=== PATIENT | male | born 1945 | race Caucasian/White ===

== ENCOUNTER 2018-09-23 17:54 | Inpatient (IN) ==
--- NOTE | 2018-09-23 20:49 | ED ---
HPI General Chief complaint: Extremity Problem,Nontraumatic Stated complaint: Rt Leg/Positive Blood Clot Time Seen by Provider: 09/23/18 20:47 Source: patient Mode of arrival: ambulatory Limitations: no limitations History of Present Illness HPI Narrative: 73-year-old male presents to the emergency department by private transportation for evaluation of DVT identified by ultrasound as an outpatient from [facility]. Patient states he has been here since 06 August did fly from [place]. Patient has been doing well but has noted swelling of the right lower extremity for 2 weeks. Patient has had previous left knee replacement but denies any issues with the right lower extremity. Patient also has history of peripheral neuropathy. Patient is not diabetic. Patient states that he went to see an orthopedist today because he has been noticing some clicking of his right knee and had a steroid injection but the orthopedist recommended an ultrasound to make sure he did not have a DVT involving the right lower extremity that was swollen and greater in size than the left lower extremely imaging study was positive for right lower extremity DVT. Patient was encouraged to come to the hospital for evaluation. Patient denies any chest pain pleuritic chest pain or shortness of breath. Patient is also had no hemoptysis. Patient takes low-dose aspirin daily no other blood thinning agents. No personal history or family history of clotting disorder. Patient denies any arrhythmia, connective tissue disorder, or autoimmune disorder. Patient had no recent travel beyond traveling to [place] and August patient denies any procedural intervention or sedentary//protracted bedrest. Patient also has history of previous CABG and hypertension. Patient has peripheral neuropathy. Patient denies history of PAD or no tobaccoism. Patient denies leg pain except for his knee. MD Complaint: Reports extremity pain and extremity swelling; Denies cold extremity, joint swelling and joint paint Onset (ago): week(s) Pain Consistency: constant Location: Reports right and lower extremity Severity scale (1-10): 3 Quality: Reports aching Radiation: Reports none Relieving factors: rest Exacerbating factors: weight bearing, walking and exertion Associated symptoms: Denies chest pain, shortness of breath, fever, myalgias, arthralgias and rash Context: Reports recent travel (august 06); Denies immobilization, recent surgery/procedure, history of DVT, history of peripheral vascular disease, recent illness and history of gout Related Data Home Medications Medication Instructions Recorded Confirmed amlodipine 5 mg PO DAILY 09/23/18 09/23/18 aspirin [Aspir-81] 81 mg PO DAILY 09/23/18 09/23/18 ezetimibe [Zetia] 10 mg PO DAILY 09/23/18 09/23/18 metoprolol tartrate 50 mg PO BID 09/23/18 09/23/18 naproxen [Naprosyn] 500 mg PO BID 09/23/18 09/23/18 paroxetine HCl [Paxil] 40 mg PO DAILY 09/23/18 09/23/18 zolpidem [Ambien] 10 mg PO HS 09/24/18 09/24/18 Allergies Allergy/AdvReac Type Severity Reaction Status Date / Time No Known Allergies Allergy Verified 09/23/18 20:10 Review of Systems ROS: all other systems reviewed are negative [facility] Medical History Medical History Depression (Acute) Heart attack (Acute) Hypertension (Acute) Surgical History Surgical History H/O heart bypass surgery (Acute) H/O resection of large bowel (Acute) H/O total knee replacement (Acute) Social History Social History Substance History: No History of Abuse Second Hand Smoke Exposure: No Smoking Status: Former smoker How Often Do You Have a Drink Containing Alcohol: 4 or more times a week Recent Travel in [facility] within the Last 8 Weeks: No Recent Out of Country Travel within the Last 8 Weeks: No Immunization History Tetanus Immunization: <5 Years Exam Narrative Exam Narrative: GENERAL: Well-nourished, well-developed patient. SKIN: Focused skin assessment warm/dry. HEAD: Normocephalic. EYES: No scleral icterus. No injection or drainage. NECK: Supple, trachea midline. No JVD or lymphadenopathy. CARDIOVASCULAR: Regular rate and rhythm without murmurs, gallops, or rubs. RESPIRATORY: Breath sounds equal bilaterally. No accessory muscle use. GASTROINTESTINAL: Abdomen soft, non-tender, nondistended. MUSCULOSKELETAL: No cyanosis, edema of the right lower extremity edema. Bilateral radial and dorsalis pedis pulses to palpation, capillary refill brisk and less than 2 seconds per digit. BACK: Nontender without obvious deformity. No CVA tenderness. Course Initial Documented Vital Signs Temperature 98.6 F 09/23/18 18:07 Pulse Rate 76 09/23/18 18:07 Respiratory Rate 18 09/23/18 18:07 Blood Pressure 155/70 H 09/23/18 18:07 Pulse Oximetry 96 09/23/18 18:07 Last Documented Vital Signs Temperature 97.0 F L 09/24/18 00:00 Pulse Rate 68 09/24/18 00:21 Respiratory Rate 18 09/24/18 00:21 Blood Pressure 123/59 L 09/24/18 00:21 Pulse Oximetry 97 09/24/18 00:21 Medical Decision Making MDM Narrative Medical decision making narrative: Review port [place] imaging ultrasound bilateral lower extremities confirms right lower extremity DVT involving superficial femoral popliteal and peroneal vein, left lower extremity negative for DVT. discussed with [facility] service for admission started on heparin Medical Screen Exam Complete: Yes Emergency Medical Condition: Yes Differential Diagnosis Differential Diagnosis: DVT confirmed by ultrasound Medical Records no prior visits Lab Data Result diagrams: 09/23/18 20:53 09/23/18 20:53 Lab Results 09/23/18 09/23/18 09/23/18 Range/Units 20:53 20:53 20:53 CBC w Diff Auto diff final WBC 6.4 (4.0-11.0) th/mm3 RBC 4.90 (4.50-5.90) mil/mm3 Hgb 15.6 (13.0-17.0) gm/dL Hct 46.8 (39.0-51.0) % MCV 95.6 (80.0-100.0) fL MCH 31.9 (27.0-34.0) pg MCHC 33.4 (32.0-36.0) % RDW 13.1 (11.6-17.2) % Plt Count 224 (150-450) th/mm3 MPV 7.3 (7.0-11.0) fL Neut % (Auto) 86.1 H (16.0-70.0) % Lymph % (Auto) 9.5 (9.0-44.0) % [place] % (Auto) 1.7 (0.0-8.0) % Eos % (Auto) 0.1 (0.0-4.0) % Baso % (Auto) 2.6 H (0.0-2.0) % Neut # (Auto) 5.5 (1.8-7.7) th/mm3 Lymph # (Auto) 0.6 L (1.0-4.8) th/mm3 [place] # (Auto) 0.1 (0.0-0.9) th/mm3 Eos # (Auto) 0.0 (0.0-0.4) th/mm3 Baso # (Auto) 0.2 (0.0-0.2) th/mm3 WBC Differential . Differential Comment . PT 10.0 (9.8-11.6) sec INR 1.0 Ratio APTT 21.9 L (23.4-31.7) sec Sodium 139 (136-145) meq/L Potassium 5.0 (3.5-5.1) meq/L Chloride 108 H (98-107) meq/L Carbon Dioxide 26.2 (21.0-32.0) meq/L Anion Gap 5 (5-15) meq/L BUN 19 H (7-18) mg/dL Creatinine 0.87 (0.60-1.30) mg/dL Estimated GFR 86 L (>89) mL/min Random Glucose 115 H (74-106) mg/dL Calcium 9.0 (8.5-10.1) mg/dL Discharge Plan Discharge Disposition Patient Disposition: ED Admit(ED Internal Use Only) Discharge Condition Condition: Stable Discharge Order Discharge Orders: ED Use Only Admit Order (Routine); Ordered 09/23/18 Ordered By: Cindy Calzada Discharge Details Diagnosis: Deep vein thrombosis of lower extremity Physicians Team ED Provider: Cindy Calzada Primary Care Provider: Primary Care Lynne Mckenna Attending Provider: Margaret Beasley Discharge Interventions Interventions: ED Discharge Assessment Last Done: 09/24/18 00:20 Status ED Status: Admitted Patient
[2018-09-23 21:02] LABS: Baso # (Auto) 0.2 th/mm3 (0.0-0.2); Baso % (Auto) 2.6 % (0.0-2.0); Eos % (Auto) 0.1 % (0.0-4.0); Hematocrit 46.8 % (39.0-51.0); Hemoglobin 15.6 gm/dL (13.0-17.0); Lymph # (Auto) 0.6 th/mm3 (1.0-4.8); Lymph % (Auto) 9.5 % (9.0-44.0); Mean Corpuscular HGB Conc 33.4 % (32.0-36.0); Mean Corpuscular Hemoglobin 31.9 pg (27.0-34.0); Mean Corpuscular Volume 95.6 fL (80.0-100.0); Mean Platelet Volume 7.3 fL (7.0-11.0); Mono # (Auto) 0.1 th/mm3 (0.0-0.9); Mono % (Auto) 1.7 % (0.0-8.0); Neut # (Auto) 5.5 th/mm3 (1.8-7.7); Neut % (Auto) 86.1 % (16.0-70.0); Platelet Count 224 th/mm3 (150-450); Red Cell Distribution Width 13.1 % (11.6-17.2); White Blood Count 6.4 th/mm3 (4.0-11.0)
[2018-09-23 21:12] LABS: Carbon Dioxide 26.2 meq/L (21.0-32.0)
[2018-09-23 21:13] LABS: Activated Partial Thrombo Time 21.9 sec (23.4-31.7)
[2018-09-23] MEDS ORDERED: Heparin 10,000 UNITS/10 ML Vial (for IV use) IV.PUSH STA (22:48)
[2018-09-23] MEDS ORDERED: Heparin Drip 25,000 UNIT/250 ML BAG IV.CONT PRN (22:48)
[2018-09-23] MEDS ORDERED: Bisacodyl 10 MG Supp RECTAL PRN (23:25)
[2018-09-23] MEDS ORDERED: Acetaminophen 325 MG Tablet PO PRN (23:25)
[2018-09-24] MEDS: Sod Chloride 0.9% Inj 1,000 ML IV.CONT SCH ×2 (01:40→08:38)
[2018-09-24 05:22] LABS: Baso % (Auto) 0.1 % (0.0-2.0); Eos % (Auto) 0.1 % (0.0-4.0); Hematocrit 42.3 % (39.0-51.0); Hemoglobin 14.5 gm/dL (13.0-17.0); Lymph # (Auto) 0.6 th/mm3 (1.0-4.8); Lymph % (Auto) 11.2 % (9.0-44.0); Mean Corpuscular HGB Conc 34.3 % (32.0-36.0); Mean Corpuscular Hemoglobin 32.8 pg (27.0-34.0); Mean Corpuscular Volume 95.6 fL (80.0-100.0); Mean Platelet Volume 7.4 fL (7.0-11.0); Mono # (Auto) 0.2 th/mm3 (0.0-0.9); Mono % (Auto) 4.4 % (0.0-8.0); Neut # (Auto) 4.7 th/mm3 (1.8-7.7); Neut % (Auto) 84.2 % (16.0-70.0); Platelet Count 173 th/mm3 (150-450); Red Blood Count 4.42 mil/mm3 (4.50-5.90); Red Cell Distribution Width 12.9 % (11.6-17.2); White Blood Count 5.5 th/mm3 (4.0-11.0)
[2018-09-24 05:39] LABS: Anion Gap 6 meq/L (5-15); Blood Urea Nitrogen 17 mg/dL (7-18); Calcium 8.5 mg/dL (8.5-10.1); Carbon Dioxide 24.7 meq/L (21.0-32.0); Chloride 109 meq/L (98-107); Glomerular Filtration Rate Greater Than 89 mL/min (>89); Glucose,Random 134 mg/dL (74-106); Sodium 140 meq/L (136-145)
--- NOTE | 2018-09-24 08:19 | P.HPIM ---
History of Present Illness Service: Hospitalist Primary Care Physician: No Primary Care Physician Chief Complaint: Right leg swelling and DVT History of Present Illness: Mr. 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 Patient reports right leg swelling for over 2 months. He went to his primary care physician in [place] who gave him short duration of Lasix. After coming to [place] he went to an orthopedic surgeon due to knee pain. During evaluation, orthopedic surgeon recommended ultrasound of the right lower extremity. Patient went to [facility] where he was found to have a DVT. He was subsequently sent to the emergency department. He was a started on heparin drip. Patient denies any right lower extremity pain. No shortness of breath, chest pain, fever or chills. He is not requiring any pain medications. Past medical history: Likely familial polyposis status post bowel resection at age 31, coronary artery disease Past surgical history: Bowel resection, CABG at age 49. Family history: Father and grandfather had colon cancer. Social history: Patient denies using tobacco or illicit drugs. However he drinks 1 drink per day for about 4 days/week. Inpatient Certification Inpatient Certification: I certify that the inpatient services were ordered in accordance with Medicare regulations governing the order. This includes certification that hospital inpatient services are reasonable and necessary and in the case of services not specified as inpatient-only under 42 CFR 419.22(n), that they are appropriately provided as inpatient services in accordance to with the 2-midnight benchmark under 43 CFR 412.3(e) Estimated Total Length of Stay (Days): 3 Plans for Post Hospital Care: Home Review of Systems Review of Systems: all other systems reviewed are negative [facility] Medical History Medical History Depression (Acute) Heart attack (Acute) Hypertension (Acute) Surgical History Surgical History H/O heart bypass surgery (Acute) H/O resection of large bowel (Acute) H/O total knee replacement (Acute) Social History Social History Substance History: No History of Abuse Second Hand Smoke Exposure: No Smoking Status: Former smoker How Often Do You Have a Drink Containing Alcohol: 4 or more times a week Recent Travel in [facility] within the Last 8 Weeks: No Recent Out of Country Travel within the Last 8 Weeks: No Immunization History Tetanus Immunization: <5 Years Hx Influenza Vaccine This Season: Yes Medications and Allergies Allergies Allergy/AdvReac Type Severity Reaction Status Date / Time No Known Allergies Allergy Verified 09/23/18 20:10 Home Medications Medication Instructions Recorded Confirmed Type amlodipine 5 mg PO DAILY 09/23/18 09/23/18 History aspirin [Aspir-81] 81 mg PO DAILY 09/23/18 09/23/18 History ezetimibe [Zetia] 10 mg PO DAILY 09/23/18 09/23/18 History metoprolol tartrate 50 mg PO BID 09/23/18 09/23/18 History naproxen [Naprosyn] 500 mg PO BID 09/23/18 09/23/18 History paroxetine HCl [Paxil] 40 mg PO DAILY 09/23/18 09/23/18 History zolpidem [Ambien] 10 mg PO HS 09/24/18 09/24/18 History Active Medications: Active Medications Acetaminophen (Tylenol) 650 mg PO Q4H PRN PRN Reason: Temp > 100.4 Al Hydroxide/Mg Hydroxide (Milk Of Magnjames Liq) 30 ml PO Q12H PRN PRN Reason: Mild Constipation Amlodipine Besylate (Norvasc) 5 mg PO DAILY SHEYLA Aspirin (Ecotrin) 81 mg PO DAILY SHEYLA Bisacodyl (Dulcolax Supp) 10 mg RECTAL DAILY PRN PRN Reason: SEVERE CONSITIPATION Ezetimibe (Zetia) 10 mg PO DAILY [facility] Heparin Sodium/Dextrose (Heparin/D5w 25,000 U/250 Ml) 25,000 unit in 250 mls @ 0 mls/hr IV.CONT TITRATE PRN; Protocol PRN Reason: Per Protocol Last Admin: 09/23/18 23:12 Dose: 1,800 units/hr, 18 mls/hr Sodium Chloride (Ns Inj) 1,000 mls @ 100 mls/hr IV.CONT .Q10H [facility] Last Admin: 09/24/18 01:40 Dose: Not Given Lactulose (Lactulose Liq) 30 ml PO DAILY PRN PRN Reason: SEVERE CONSITIPATION Metoprolol Tartrate (Lopressor) 50 mg PO BID [facility] Ondansetron HCl (Zofran Inj) 4 mg IV.PUSH Q6H PRN PRN Reason: NAUSEA OR VOMITING Paroxetine HCl (Paxil) 40 mg PO DAILY [facility] Sennosides (Senokot) 17.2 mg PO Q12H PRN PRN Reason: Moderate Constipation Sodium Chloride (Ns Flush) 2 ml IV.FLUSH BID SHEYLA Sodium Chloride (Ns Flush) 2 ml IV.FLUSH PRN PRN PRN Reason: FLUSH AFTER USING IV ACCESS Zolpidem Tartrate (Ambien) 10 mg PO HS PRN PRN Reason: insomnia Last Admin: 09/24/18 01:17 Dose: 10 mg Physical Exam Vital signs: Vital Signs 09/23/18 18:07 09/23/18 20:10 09/23/18 21:49 Temperature 98.6 F Pulse Rate 76 72 Respiratory Rate 18 16 16 Blood Pressure 155/70 H 145/75 H 126/72 Pulse Oximetry 96 98 98 09/23/18 23:16 09/24/18 00:00 09/24/18 00:21 Temperature 97.0 F L Pulse Rate 64 64 68 Respiratory Rate 16 18 18 Blood Pressure 134/80 142/84 H 123/59 L Pulse Oximetry 98 94 L 97 09/24/18 04:00 Temperature 96.5 F L Pulse Rate 65 Respiratory Rate 18 Blood Pressure 130/71 Pulse Oximetry 95 Intake & Output 09/23/18 09/24/18 09/24/18 18:59 06:59 18:59 Weight 148 kg 146.6 kg Other: Weight On Admission 146.6 kg Narrative: GENERAL: This is a well-nourished, well-developed patient, in no apparent distress. SKIN: No rashes, ecchymoses or lesions. Warm and dry. HEAD: Atraumatic. Normocephalic. No temporal or scalp tenderness. EYES: Pupils equal round and reactive. No injection or drainage. ENT: Nose without bleeding, purulent drainage or septal hematoma. Airway patent. NECK: Trachea midline. No lymphadenopathy. Supple, nontender, no meningeal signs. CARDIOVASCULAR: Regular rate and rhythm without murmurs, gallops, or rubs. No JVD. RESPIRATORY: Clear to auscultation. Breath sounds equal bilaterally. No wheezes , rales, or rhonchi. GASTROINTESTINAL: Abdomen soft, non-tender, nondistended. No guarding. MUSCULOSKELETAL: Extremities without clubbing, cyanosis. Right lower extremity somewhat swollen compared to left side. No tenderness noted. NEUROLOGICAL: Awake and alert. Cranial nerves II through XII intact. No focal neurological deficits. Normal speech. Results Labs CBC & Chem 7: 09/24/18 04:48 09/24/18 04:48 Caprini VTE Risk Assessment Caprini VTE Risk Assessment: Moderate/High Risk (score >= 2) Caprini Risk Assessment Model: Point Value = 1 Point Value = 2 Point Value = 3 Point Value = 5 Age 41-60 Minor surgery BMI > 25 kg/m2 Swollen legs Varicose veins or History of unexplained or recurrent spontaneous Oral contraceptives or hormone replacement Sepsis (< 1 month) Serious lung disease, including pneumonia (< 1 month) Abnormal pulmonary function Acute myocardial infarction Congestive heart failure (< 1 month) History of inflammatory bowel disease Medical patient at bed rest Age 61-74 Arthroscopic surgery Major open surgery (> 45 min) Laparoscopic surgery (> 45 min) Malignancy Confined to bed (> 72 hours) Immobilizing plaster cast Central venous access Age >= 75 History of VTE Family history of VTE Factor V Leiden Prothrombin [id number] Lupus anticoagulant Anticardiolipin antibodies Elevated serum homocysteine Heparin-induced thrombocytopenia Other congenital or acquired thrombophilia Stroke (< 1 month) Elective arthroplasty Hip, pelvis, or leg fracture Acute spinal cord injury (< 1 month) Prophylaxis Regimen: Total Risk Factor Score Risk Level Prophylaxis Regimen 0-1 Low Early ambulation 2 Moderate Order ONE of the following: *Sequential Compression Device (SCD) *Heparin 5000 units SQ BID 3-4 Higher Order ONE of the following medications: *Heparin 5000 units SQ TID *Enoxaparin/Lovenox 40 mg SQ daily (WT < 150 kg, CrCl > 30 mL/min) *Enoxaparin/Lovenox 30 mg SQ daily (WT < 150 kg, CrCl > 10-29 mL/min) *Enoxaparin/Lovenox 30 mg SQ BID (WT < 150 kg, CrCl > 30 mL/min) AND/OR *Sequential Compression Device (SCD) 5 or more Highest Order ONE of the following medications: *Heparin 5000 units SQ TID (Preferred with Epidurals) *Enoxaparin/Lovenox 40 mg SQ daily (WT < 150 kg, CrCl > 30 mL/min) *Enoxaparin/Lovenox 30 mg SQ daily (WT < 150 kg, CrCl > 10-29 mL/min) *Enoxaparin/Lovenox 30 mg SQ BID (WT < 150 kg, CrCl > 30 mL/min) AND *Sequential Compression Device (SCD) Assessment and Plan Plan Mr. Grove is a pleasant 73-year-old male with a history of CABG, bowel resection due to familial polyposis who presents to the emergency department after he was found to have DVT on right lower extremity ultrasound. Patient has had right leg swelling for 2 months. Recently he was evaluated by an orthopedic surgeon who recommended ultrasound. Right lower extremity deep vein thrombosis Patient is currently on heparin drip. He is not requiring any oxygen, pain medication. We will discontinue heparin drip and start patient on apixaban 10 mg twice a day for 7 days then 5 mg twice a day. Patient will be observed for 2-3 hours after first dose is given. If he continues to do well, patient can be discharged home. Since this appears to be unprovoked, I advised patient to continue apixaban indefinitely. Probable familial polyposis Coronary artery disease No acute issues. Status post bowel resection and CABG. Hypertension Likely osteoarthritis Continue amlodipine 5 mg daily. I would avoid any NSAIDs including naproxen or aspirin. Patient is advised to take acetaminophen for pain management. Full code. Apixaban. Discharge patient to home Condition on discharge: Improved Heart healthy diet as tolerated Ad Jacinta activity Rx written: Apixaban 10 mg p.o. twice daily through 09/30/2018. Start 5 mg every 12 hours starting to 10/01/2018. Patient is advised to avoid aspirin as well as other NSAIDs. Follow-up with primary care physician within 1-2 weeks. H&P: Quality VTE Deep Vein Thrombosis/Pulmonary Embolism Present on Admission: Yes
[2018-09-24] MEDS ORDERED: Metoprolol Tartrate 50 MG Tablet PO SCH (09:00)
[2018-09-24] MEDS ORDERED: amLODIPine 5 MG Tablet PO SCH (09:00)
[2018-09-24] MEDS ORDERED: Ezetimibe 10 MG Tablet PO SCH (09:00)
[2018-09-24 12:50] VITALS: RESP 17
[2018-09-24 16:55] VITALS: BP 128/86; PULSE 67; TEMP 96.8; O2SAT 97
== END 2018-09-24 17:59 | disposition home or self-care (01) | DRG 301 ==
LOC: PHED 17:54 → PHEDA 22:49 → PH3 09-24 00:25
PROVIDERS: ADMIT Hospitalist; ATTEND Hospitalist
CPT/HCPCS: 80048; 85025; 85610; 85730; 99285; J1644; J7030